=== PATIENT | female | born 1970 | race Caucasian/White ===

== ENCOUNTER 2016-11-24 19:28 | Emergency (ER) | payer OTHER ==
[~2016-11-24] VITALS: Ht 160 cm; Wt 78.2 kg
[~2016-11-24 19:28] MED LIST: CIPR500T87 PO; DICY20TA29 PO; HYDR-3240 PO; IBUP800T PO; METR500T PO
[2016-11-24] MEDS ORDERED: IBUPROFEN 200 MG TABLET PO ONE (20:30)
[2016-11-24] MEDS ORDERED: IBUPROFEN 200 MG TABLET ONE (21:01)
[2016-11-24 22:40] VITALS: BP 116/65
== END 2016-11-24 22:43 | disposition home or self-care (01) ==
LOC: ED 22:30
DX: G44.219 Episodic tension-type headache, not intractable (principal); H92.01 Otalgia, right ear; Z87.891 Personal history of nicotine dependence
CPT/HCPCS: 70450; 81003

== ENCOUNTER 2017-04-28 11:43 | Emergency (ER) | payer BC, OTHER ==
[~2017-04-28] VITALS: Ht 160 cm; Wt 78.8 kg
[~2017-04-28 11:43] MED LIST changes: +IBUP-1223 PO; -IBUP800T PO
[2017-04-28 11:44] VITALS: BP 130/84
[2017-04-28] MEDS ORDERED: KETOROLAC 30 MG/1 ML IM ONE (12:00)
[2017-04-28] MEDS ORDERED: KETOROLAC 30 MG/1 ML ONE (12:01)
== END 2017-04-28 12:39 | disposition home or self-care (01) ==
LOC: ED 12:35
DX: S80.01XA Contusion of right knee, initial encounter (principal); Z88.1 Allergy status to other antibiotic agents; X50.0XXA Overexertion from strenuous movement or load, initial encounter; Y93.89 Activity, other specified; Y92.098 Other place in other non-institutional residence as the place of occurrence of the external cause; Y99.8 Other external cause status
CPT/HCPCS: 73564; 96372; 99284; J1885

== ENCOUNTER → 2017-06-04 | Outpatient (CLI) | payer BC, OTHER | END | disposition home or self-care (01) | LOC: CFH 09:17 | PROVIDERS: ATTEND Internal Medicine | DX: F45.8 Other somatoform disorders (principal); R05 Cough | CPT/HCPCS: 74220 ==

== ENCOUNTER 2017-07-20 07:56 | Emergency (ER) | payer BC, OTHER ==
[~2017-07-20] VITALS: Ht 160 cm; Wt 79.0 kg
[2017-07-20] MEDS ORDERED: ALBUTEROL SULFATE 2.5 MG/3 ML NPPB ONE (08:30)
[2017-07-20] MEDS ORDERED: ALBUTEROL SULFATE 2.5 MG/3 ML ONE (09:17)
[2017-07-20 09:46] VITALS: BP 122/79
== END 2017-07-20 10:19 | disposition home or self-care (01) ==
LOC: ED 08:46
DX: J20.8 Acute bronchitis due to other specified organisms (principal); Z87.891 Personal history of nicotine dependence
CPT/HCPCS: 71020; 93005; 94640; 99284; J7613

== ENCOUNTER 2018-03-09 11:51 | Emergency (ER) | payer BC, OTHER ==
[~2018-03-09] VITALS: Ht 160 cm; Wt 81.0 kg
[2018-03-09] MEDS ORDERED: ONDANSETRON ODT 4 MG ONE (12:19)
[2018-03-09] MEDS ORDERED: MORPHINE SULFATE 4 MG/ML, 1ML ONE (12:19)
[2018-03-09 12:24] LABS: MICROSCOPIC AUTO
[2018-03-09 12:27] LABS: CULTURE INDICATED? YES
[2018-03-09] MEDS ORDERED: MORPHINE SULFATE 4 MG/ML, 1ML IVPush PRN (12:30)
[2018-03-09] MEDS ORDERED: SODIUM CHLORIDE FLUSH 10ML SYR IVF ONE (12:30)
[2018-03-09] MEDS ORDERED: ONDANSETRON ODT 4 MG PO ONE (12:30)
[2018-03-09 12:42] LABS: BASOPHILS # (AUTO) 0.03 x10^3/uL (0-0.1); BASOPHILS % (AUTO) 1 % (0-1); EOSINOPHILS # (AUTO) 0.05 x10^3/uL (0-0.4); EOSINOPHILS % (AUTO) 1 % (1-7); LYMPHOCYTES # (AUTO) 1.67 x10^3/uL (1-3.4); LYMPHOCYTES % (AUTO) 28 % (22-44); MD NO; MEAN CORPUSCULAR HEMOGLOBIN 32.6 pg (27.0-34.8); MEAN CORPUSCULAR HGB CONC 34.2 g/dL (32.4-35.8); MEAN CORPUSCULAR VOLUME 95.2 fL (80-100); MEAN PLATELET VOLUME 8.2 fL (7.4-10.4); MONOCYTES # (AUTO) 0.62 x10^3/uL (0.2-0.8); MONOCYTES % (AUTO) 11 % (2-9); NEUTROPHILS # (AUTO) 3.57 x10^3/uL (1.8-6.8); NEUTROPHILS % (AUTO) 60 % (42-75); PLATELET COUNT 216 x10^3/uL (130-400); RED CELL DISTRIBUTION WIDTH 12.9 % (9.6-15.2)
[2018-03-09 12:56] LABS: ALANINE AMINOTRANSFERASE 22 U/L (12-78); ALBUMIN 3.6 g/dL (3.4-5.0); CALCIUM 8.5 mg/dL (8.5-10.1)
[2018-03-09 12:58] LABS: ALKALINE PHOSPHATASE 43 U/L (45-117); BILIRUBIN,TOTAL 0.8 mg/dL (0.2-1.0); CREATININE 0.76 mg/dL (0.55-1.02); TOTAL PROTEIN 6.8 g/dL (6.4-8.2)
[2018-03-09 13:03] LABS: ANION GAP 7 mmol/L (5-15); CHLORIDE 111 mmol/L (98-107)
[2018-03-09 13:50] VITALS: BP 128/78
== END 2018-03-09 14:00 | disposition home or self-care (01) ==
LOC: ED 12:16
DX: S29.012A Strain of muscle and tendon of back wall of thorax, initial encounter (principal); K52.9 Noninfective gastroenteritis and colitis, unspecified; B19.20 Unspecified viral hepatitis C without hepatic coma; X58.XXXA Exposure to other specified factors, initial encounter; Y93.89 Activity, other specified; Y92.89 Other specified places as the place of occurrence of the external cause; Y99.8 Other external cause status
CPT/HCPCS: 36415; 74176; 80053; 81001; 83690; 85025; 87086; 96374; 99285; Q0162

== ENCOUNTER 2018-05-26 20:09 | Emergency (ER) | payer BC, OTHER ==
[~2018-05-26] VITALS: Ht 160 cm; Wt 81.9 kg
[2018-05-26 20:12] VITALS: BP 107/77
[2018-05-26] MEDS ORDERED: DIAZEPAM 5 MG TABLET PO ONE (20:30)
[2018-05-26] MEDS ORDERED: KETOROLAC 30 MG/1 ML IM ONE (20:30)
[2018-05-26] MEDS ORDERED: DIAZEPAM 5 MG TABLET ONE (20:32)
[2018-05-26] MEDS ORDERED: KETOROLAC 30 MG/1 ML ONE (20:32)
== END 2018-05-26 21:03 | disposition home or self-care (01) ==
LOC: ED 20:58
DX: S16.1XXA Strain of muscle, fascia and tendon at neck level, initial encounter (principal); M62.830 Muscle spasm of back; Z87.891 Personal history of nicotine dependence; X58.XXXA Exposure to other specified factors, initial encounter; Y93.89 Activity, other specified; Y92.89 Other specified places as the place of occurrence of the external cause; Y99.8 Other external cause status
CPT/HCPCS: 96372; 99283; J1885

== ENCOUNTER 2018-09-16 18:37 | Emergency (ER) | payer OTHER ==
[~2018-09-16] VITALS: Ht 160 cm; Wt 82.7 kg
[2018-09-16 18:53] VITALS: BP 145/75
== END 2018-09-16 19:56 | disposition home or self-care (01) ==
LOC: ED 19:10
DX: S83.92XA Sprain of unspecified site of left knee, initial encounter (principal); S93.402A Sprain of unspecified ligament of left ankle, initial encounter; Z87.891 Personal history of nicotine dependence; X50.1XXA Overexertion from prolonged static or awkward postures, initial encounter; Y93.89 Activity, other specified; Y92.009 Unspecified place in unspecified non-institutional (private) residence as the place of occurrence of the external cause; Y99.8 Other external cause status
CPT/HCPCS: 99283

== ENCOUNTER 2019-01-05 14:53 | Emergency (ER) | payer OTHER ==
[~2019-01-05] VITALS: Ht 160 cm; Wt 82.6 kg
[2019-01-05 14:56] VITALS: BP 118/92
[2019-01-05 15:30] LABS: BASOPHILS # (AUTO) 0.05 x10^3/uL (0-0.1); BASOPHILS % (AUTO) 1 % (0-1); EOSINOPHILS # (AUTO) 0.09 x10^3/uL (0-0.4); EOSINOPHILS % (AUTO) 1 % (1-7); LYMPHOCYTES # (AUTO) 2.17 x10^3/uL (1-3.4); LYMPHOCYTES % (AUTO) 31 % (22-44); MD NO; MEAN CORPUSCULAR HGB CONC 34.3 g/dL (32.4-35.8); MEAN CORPUSCULAR VOLUME 96.3 fL (80-100); MONOCYTES # (AUTO) 0.49 x10^3/uL (0.2-0.8); MONOCYTES % (AUTO) 7 % (2-9); NEUTROPHILS % (AUTO) 61 % (42-75); PLATELET COUNT 228 x10^3/uL (130-400); RED BLOOD COUNT 4.29 x10^6/uL (3.82-5.3); RED CELL DISTRIBUTION WIDTH 13.5 % (9.6-15.2)
[2019-01-05 15:41] LABS: ALANINE AMINOTRANSFERASE 20 U/L (12-78); ANION GAP 8 mmol/L (5-15); CALCIUM 8.6 mg/dL (8.5-10.1); CHLORIDE 110 mmol/L (98-107); CREATININE 0.79 mg/dL (0.55-1.02)
[2019-01-05 15:43] LABS: ALKALINE PHOSPHATASE 48 U/L (45-117); BILIRUBIN,TOTAL 0.5 mg/dL (0.2-1.0); TOTAL PROTEIN 7.1 g/dL (6.4-8.2)
[2019-01-05] MEDS ORDERED: KETOROLAC 30 MG/1 ML IM ONE (16:00)
[2019-01-05] MEDS ORDERED: KETOROLAC 30 MG/1 ML ONE (16:31)
[2019-01-05 16:38] LABS: MICROSCOPIC NOT IND
[2019-01-05 16:41] LABS: CULTURE INDICATED? NO
--- NOTE | 2019-01-05 16:43 | NUR ---
Amador RN: Pt medicated as per emar for 7/10 R flank pain.
--- NOTE | 2019-01-05 17:42 | NUR ---
task rn: pt ambulating well upon departure.
== END 2019-01-05 17:48 | disposition home or self-care (01) ==
LOC: ED 17:15
DX: S39.012A Strain of muscle, fascia and tendon of lower back, initial encounter (principal); N81.10 Cystocele, unspecified; Z87.891 Personal history of nicotine dependence; Z86.19 Personal history of other infectious and parasitic diseases; X58.XXXA Exposure to other specified factors, initial encounter; Y93.89 Activity, other specified; Y92.89 Other specified places as the place of occurrence of the external cause; Y99.8 Other external cause status
CPT/HCPCS: 36415; 76700; 80053; 81003; 83690; 85025; 96372; 99284; J1885

== ENCOUNTER 2019-07-30 08:49 | Emergency (ER) | payer OTHER ==
[~2019-07-30] VITALS: Ht 160 cm; Wt 86.0 kg
[~2019-07-30 08:49] MED LIST changes: +CBD Gummies PO; +IPRA3AMP30 NEB; +MELO15TA24 PO; +PROBIOTIC PO; +TIZA4TAB2 PO; +[UNRECOGNIZED DRUG - OTHER] PO
--- NOTE | 2019-07-30 09:13 | NUR ---
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 05/05.
[2019-07-30] MEDS ORDERED: MORPHINE SULFATE 4 MG/ML, 1ML IVPush PRN (09:30)
[2019-07-30] MEDS ORDERED: SODIUM CHLORIDE FLUSH 10ML SYR IVF ONE (09:30)
[2019-07-30] MEDS ORDERED: ONDANSETRON 2MG/ML, 2ML IVPush ONE (09:30)
--- NOTE | 2019-07-30 09:33 | NUR ---
PT AMBULATED TO BR WITH STEADY GAIT, UA COLLECTED AND SENT TO LAB
[2019-07-30] MEDS ORDERED: MORPHINE SULFATE 4 MG/ML, 1ML ONE (09:34)
[2019-07-30] MEDS ORDERED: ONDANSETRON 2MG/ML, 2ML ONE (09:34)
[2019-07-30 09:53] LABS: CULTURE INDICATED? NO; MICROSCOPIC NOT IND
[2019-07-30 09:58] LABS: BASOPHILS # (AUTO) 0.03 x10^3/uL (0-0.1); BASOPHILS % (AUTO) 0 % (0-1); EOSINOPHILS # (AUTO) 0.09 x10^3/uL (0-0.4); EOSINOPHILS % (AUTO) 2 % (1-7); LYMPHOCYTES # (AUTO) 1.57 x10^3/uL (1-3.4); LYMPHOCYTES % (AUTO) 26 % (22-44); MD NO; MEAN CORPUSCULAR HEMOGLOBIN 32.9 pg (27.0-34.8); MEAN CORPUSCULAR HGB CONC 33.1 g/dL (32.4-35.8); MEAN CORPUSCULAR VOLUME 99.3 fL (80-100); MEAN PLATELET VOLUME 8.5 fL (7.4-10.4); MONOCYTES # (AUTO) 0.42 x10^3/uL (0.2-0.8); MONOCYTES % (AUTO) 7 % (2-9); NEUTROPHILS # (AUTO) 3.85 x10^3/uL (1.8-6.8); NEUTROPHILS % (AUTO) 65 % (42-75); PLATELET COUNT 203 x10^3/uL (130-400); RED BLOOD COUNT 4.17 x10^6/uL (3.82-5.3); RED CELL DISTRIBUTION WIDTH 12.8 % (9.6-15.2)
[2019-07-30 10:04] LABS: ALBUMIN 3.6 g/dL (3.4-5.0); ANION GAP 7 mmol/L (5-15); CALCIUM 8.6 mg/dL (8.5-10.1); CHLORIDE 110 mmol/L (98-107); CREATININE 0.68 mg/dL (0.55-1.02)
--- NOTE | 2019-07-30 10:10 | NUR ---
PT TO CT
[2019-07-30 10:37] VITALS: BP 135/83
--- NOTE | 2019-07-30 10:58 | NUR ---
PT BACK FROM IMAGING
[2019-07-30] MEDS ORDERED: OMNIPAQUE 350 MG/ML, 100ML BOTTLE ONE (11:09)
== END 2019-07-30 11:36 | disposition home or self-care (01) ==
LOC: ED 10:18
DX: N83.01 Follicular cyst of right ovary (principal)
CPT/HCPCS: 36415; 74177; 76830; 80048; 81003; 82040; 85025; 96374; 96375; 99284; J2270; J2405; Q9967

== ENCOUNTER 2019-12-06 19:38 | Emergency (ER) | payer BC, OTHER ==
[~2019-12-06] VITALS: Ht 160 cm; Wt 86.5 kg
--- NOTE | 2019-12-06 19:56 | NUR ---
NAIMA ASSISTED W/ TRIAGE & DID EKG
--- NOTE | 2019-12-06 20:54 | NUR ---
PT RESTING IN [facility]. VSS. NAD. AWAITNG LAB RESULTS
[2019-12-06 21:26] LABS: BASOPHILS # (AUTO) 0.03 x10^3/uL (0-0.1); BASOPHILS % (AUTO) 0 % (0-1); EOSINOPHILS # (AUTO) 0.06 x10^3/uL (0-0.4); EOSINOPHILS % (AUTO) 1 % (1-7); LYMPHOCYTES # (AUTO) 2.23 x10^3/uL (1-3.4); LYMPHOCYTES % (AUTO) 30 % (22-44); MD NO; MEAN CORPUSCULAR HEMOGLOBIN 32.1 pg (27.0-34.8); MEAN CORPUSCULAR HGB CONC 33.8 g/dL (32.4-35.8); MEAN CORPUSCULAR VOLUME 95.1 fL (80-100); MEAN PLATELET VOLUME 8.2 fL (7.4-10.4); MONOCYTES # (AUTO) 0.54 x10^3/uL (0.2-0.8); MONOCYTES % (AUTO) 7 % (2-9); NEUTROPHILS # (AUTO) 4.55 x10^3/uL (1.8-6.8); NEUTROPHILS % (AUTO) 62 % (42-75); PLATELET COUNT 212 x10^3/uL (130-400); RED BLOOD COUNT 4.32 x10^6/uL (3.82-5.3); RED CELL DISTRIBUTION WIDTH 12.7 % (9.6-15.2)
[2019-12-06 21:36] LABS: ALANINE AMINOTRANSFERASE 13 U/L (12-78); ALBUMIN 3.5 g/dL (3.4-5.0); ANION GAP 5 mmol/L (5-15); CALCIUM 8.9 mg/dL (8.5-10.1); CHLORIDE 109 mmol/L (98-107); CREATININE 0.91 mg/dL (0.55-1.02)
[2019-12-06 21:41] LABS: ALKALINE PHOSPHATASE 52 U/L (45-117); BILIRUBIN,TOTAL 0.6 mg/dL (0.2-1.0); TOTAL PROTEIN 6.7 g/dL (6.4-8.2); TROPONIN I < 0.015 ng/mL (0.000-0.045)
[2019-12-06 21:45] VITALS: BP 146/76
--- NOTE | 2019-12-06 21:45 | NUR ---
PT RESTING IN [facility]. VSS. NAD. UP FOR RECHECK
== END 2019-12-06 22:08 | disposition home or self-care (01) ==
LOC: ED 20:08
DX: J44.1 Chronic obstructive pulmonary disease with (acute) exacerbation (principal); R07.89 Other chest pain; R94.31 Abnormal electrocardiogram [ECG] [EKG]; Z90.49 Acquired absence of other specified parts of digestive tract; Z90.710 Acquired absence of both cervix and uterus; Z87.891 Personal history of nicotine dependence
CPT/HCPCS: 36415; 71045; 80053; 83880; 84484; 85025; 93005; 99285

== ENCOUNTER 2020-01-21 12:51 | Emergency (ER) | payer BC, OTHER ==
[~2020-01-21] VITALS: Ht 160 cm; Wt 86.0 kg
--- NOTE | 2020-01-21 13:07 | NUR ---
THIS IS A 49 YO F W/ C/O BILAT LWR ABD PAIN 9/10 N/V SINCE 0400 THIS MORNING. PT REPORTS VOMITING W/ MEALS. DENIES HEMATEMESIS/D/C. HX:DIVERTICULITIS. RESP EVEN AND UNLABORED, NADN. PT RESTING ON [facility] W/ CALL LIGHT IN REACH. AT BEDSIDE FOR ED EVAL.
[2020-01-21] MEDS ORDERED: SODIUM CHLORIDE 0.9% 1,000 ML IV ONE (13:10)
[2020-01-21] MEDS ORDERED: ONDANSETRON 2MG/ML, 2ML ONE (13:24)
[2020-01-21] MEDS ORDERED: MORPHINE SULFATE 4 MG/ML, 1ML ONE (13:24)
[2020-01-21] MEDS ORDERED: MORPHINE SULFATE 4 MG/ML, 1ML IVPush PRN (13:30)
[2020-01-21] MEDS ORDERED: ONDANSETRON 2MG/ML, 2ML IVPush ONE (13:30)
[2020-01-21] MEDS ORDERED: SODIUM CHLORIDE FLUSH 10ML SYR IVF ONE (13:30)
--- NOTE | 2020-01-21 13:33 | NUR ---
PIV STARTED, LABS DRAWN. PT MEDICATED PER EMAR. PT RESTING ON GURNEY W/ CALL LIGHT IN REACH. VSS, RAVI.
[2020-01-21 13:34] LABS: MICROSCOPIC NOT IND
[2020-01-21] MEDS ORDERED: BREO ELLIPTA INH (13:35)
[2020-01-21 14:11] LABS: BASOPHILS # (AUTO) 0.04 x10^3/uL (0-0.1); BASOPHILS % (AUTO) 1 % (0-1); EOSINOPHILS # (AUTO) 0.07 x10^3/uL (0-0.4); EOSINOPHILS % (AUTO) 1 % (1-7); LYMPHOCYTES # (AUTO) 2.17 x10^3/uL (1-3.4); LYMPHOCYTES % (AUTO) 33 % (22-44); MD NO; MEAN CORPUSCULAR HEMOGLOBIN 32.4 pg (27.0-34.8); MEAN CORPUSCULAR VOLUME 98.4 fL (80-100); MEAN PLATELET VOLUME 8.4 fL (7.4-10.4); MONOCYTES # (AUTO) 0.52 x10^3/uL (0.2-0.8); MONOCYTES % (AUTO) 8 % (2-9); NEUTROPHILS # (AUTO) 3.76 x10^3/uL (1.8-6.8); NEUTROPHILS % (AUTO) 57 % (42-75); PLATELET COUNT 237 x10^3/uL (130-400); RED BLOOD COUNT 4.39 x10^6/uL (3.82-5.3); RED CELL DISTRIBUTION WIDTH 13.9 % (9.6-15.2)
[2020-01-21 14:13] LABS: ALBUMIN 3.6 g/dL (3.4-5.0); ANION GAP 7 mmol/L (5-15); CALCIUM 8.7 mg/dL (8.5-10.1); CHLORIDE 110 mmol/L (98-107)
[2020-01-21 14:19] LABS: ALANINE AMINOTRANSFERASE 17 U/L (12-78); BILIRUBIN,TOTAL 0.7 mg/dL (0.2-1.0); CREATININE 0.78 mg/dL (0.55-1.02); TOTAL PROTEIN 6.9 g/dL (6.4-8.2)
[2020-01-21 14:20] LABS: ALKALINE PHOSPHATASE 50 U/L (45-117)
--- NOTE | 2020-01-21 14:26 | NUR ---
TASK RN: ALL RESULTS ARE BACK AT THIS TIME. CHART UP FOR RECHECK.
--- NOTE | 2020-01-21 14:43 | NUR ---
PT RESTING ON [employer] W/ CALL LIGHT IN REACH, VSS, NADN. AWAITING RECHECK.
--- NOTE | 2020-01-21 16:03 | NUR ---
PT TO CT.
[2020-01-21] MEDS ORDERED: OMNIPAQUE 350 MG/ML, 100ML BOTTLE ONE (16:14)
--- NOTE | 2020-01-21 16:34 | NUR ---
CT RESULTED. PT IS UP FOR RECHECK AT THIS TIME.
--- NOTE | 2020-01-21 16:40 | NUR ---
AT BEDSIDE FOR RECHECK.
[2020-01-21 17:07] VITALS: BP 133/82
--- NOTE | 2020-01-21 17:51 | NUR ---
Patient given discharge instructions and they have confirmed that they understand the instructions. Patient ambulatory with steady gait.
== END 2020-01-21 17:52 | disposition home or self-care (01) ==
LOC: ED 15:29
DX: R10.31 Right lower quadrant pain (principal); R11.2 Nausea with vomiting, unspecified; Z90.49 Acquired absence of other specified parts of digestive tract; Z87.891 Personal history of nicotine dependence
CPT/HCPCS: 36415; 74177; 80053; 81003; 83690; 84703; 85025; 96361; 96374; 96375; 99285; J2270; J2405; J7030; Q9967

== ENCOUNTER 2020-07-07 08:02 | Emergency (ER) | payer BC, OTHER ==
[~2020-07-07] VITALS: Ht 160 cm; Wt 82.0 kg
[~2020-07-07 08:02] MED LIST changes: +BREO ELLIPTA INH
--- NOTE | 2020-07-07 08:02 | NUR ---
INITIAL PT CONTACT. PT PRESENTS TO ED VIA AMBULANCE C/O CHEST AND BACK PAIN DESCRIBED PRESSURE THAT WOKE HER OUT OF SLEEP. PER EMS PAIN IS PREPRODUCABLE WITH PALPATION. PT STATES "I TOOK A PUFF OF MY BREO INHALER AT HOME AND IT HELPED A LITTLE". PT PLACED ON CONTINUOUS PULSE OX AND CARDIAC MONITORING. CALL LIGHT AND PERSONAL BELONGINGS WITHIN REACH. PT DENIES ANY NEEDS AT THIS TIME.
[2020-07-07] MEDS ORDERED: KETOROLAC 60 MG/2 ML ONE (08:17)
[2020-07-07] MEDS ORDERED: KETOROLAC 30 MG/1 ML IM ONE (08:30)
[2020-07-07 08:49] LABS: ALANINE AMINOTRANSFERASE 10 U/L (12-78); ALBUMIN 3.5 g/dL (3.4-5.0); ANION GAP 6 mmol/L (5-15); CALCIUM 8.6 mg/dL (8.5-10.1); CHLORIDE 112 mmol/L (98-107)
[2020-07-07 08:53] LABS: ALKALINE PHOSPHATASE 53 U/L (45-117); BILIRUBIN,TOTAL 0.4 mg/dL (0.2-1.0); TOTAL PROTEIN 6.6 g/dL (6.4-8.2); TROPONIN I < 0.015 ng/mL (0.000-0.045)
--- NOTE | 2020-07-07 09:00 | NUR ---
PT SITTING UPRIGHT ON GURNEY, NAD, VSS. PT REPORTS "SLIGHT DECREASE IN PAIN" FOLLOWING EXERCISE PHYSIOLOGY PROFESSOR. PT DENIES ANY NEEDS AT THIS TIME. CONTINUOUS PULSE OX AND SALES COMPENSATION ANALYST IN PLACE. CALL LIGHT AND PERSONAL BELONGINGS IN REACH.
[2020-07-07] MEDS ORDERED: MORPHINE SULFATE 4 MG/ML, 1ML ONE (09:18)
[2020-07-07] MEDS ORDERED: MORPHINE SULFATE 4 MG/ML, 1ML IVPush PRN (09:30)
--- NOTE | 2020-07-07 09:30 | NUR ---
PT TO CT
[2020-07-07] MEDS ORDERED: OMNIPAQUE 350 MG/ML, 75ML BOTTLE ONE (09:43)
--- NOTE | 2020-07-07 10:55 | NUR ---
Patient given discharge instructions and they have confirmed that they understand the instructions. Patient ambulatory with steady gait.
[2020-07-07 10:56] VITALS: BP 128/77
== END 2020-07-07 10:58 | disposition home or self-care (01) ==
LOC: ED 09:47
DX: R07.89 Other chest pain (principal); R94.31 Abnormal electrocardiogram [ECG] [EKG]; R06.89 Other abnormalities of breathing; M54.9 Dorsalgia, unspecified; J44.9 Chronic obstructive pulmonary disease, unspecified; Z90.49 Acquired absence of other specified parts of digestive tract; Z90.710 Acquired absence of both cervix and uterus; Z98.51 Tubal ligation status
CPT/HCPCS: 36415; 71045; 71275; 80053; 84484; 93005; 96372; 96374; 99285; J1885; J2270; Q9967

== ENCOUNTER 2020-10-20 09:39 | Emergency (ER) | payer BC, OTHER ==
[~2020-10-20] VITALS: Ht 160 cm; Wt 83.2 kg
[~2020-10-20 09:39] MED LIST changes: +HYDR-1067 PO; -HYDR-3240 PO
--- NOTE | 2020-10-20 10:17 | NUR ---
MD AT BEDSIDE FOR ASSESSMENT AND TO DISCUSS PLAN OF CARE
--- NOTE | 2020-10-20 10:18 | NUR ---
PT COMES IN C/O RIGHT BUTTOCK WOUND. " I NOTICED A BUMP ABOUT A MONTH AGO." C/O PAIN, REDNESS, "PURPLE COLORING". MONITORS CONNECTED.
[2020-10-20 10:54] VITALS: BP 150/55
--- NOTE | 2020-10-20 10:56 | NUR ---
PT AMBULATED TO DISCHARGE W/STEADY GAIT. PT ENCOURAGED TO FOLLOWUP DISCUSSED. PT EDUCATED TO RETURN TO THE ED W/NEW OR WORSENING SYMPTOMS. RX GIVEN
== END 2020-10-20 11:03 | disposition home or self-care (01) ==
LOC: ED 10:15
DX: L03.317 Cellulitis of buttock (principal); J44.9 Chronic obstructive pulmonary disease, unspecified; Z87.891 Personal history of nicotine dependence; Z90.49 Acquired absence of other specified parts of digestive tract; Z90.710 Acquired absence of both cervix and uterus; Z98.51 Tubal ligation status
CPT/HCPCS: 99283

== ENCOUNTER 2020-11-04 17:42 | Emergency (ER) | payer BC, OTHER ==
[~2020-11-04] VITALS: Ht 160 cm; Wt 83.5 kg
--- NOTE | 2020-11-04 18:22 | NUR ---
PODIATRIC FOOT AND ANKLE SPECIALIST: PT TO ROOM FROM LOBBY
--- NOTE | 2020-11-04 18:28 | NUR ---
PATIENT WALKED BACK FROM TRIAGE WITH CHIEF C/O MID STERNAL CHEST PAIN THAT STARTED TODAY WHICH IS MADE WORSE WITH DEEP INHALATION. PATIENT REPORTS PAIN RADIATES TO RIGHT ARM, NAUSEA, SWEATING, DENIES SOB. PATIENT DENIES VOMITTING OR DIARRHEA. PATIENT STATES SHE WAS TESTED FOR COVID AND RESULTS CAME BACK NEGATIVE TODAY. ILENE RODRIGUES, CALL LIGHT WITHIN REACH.
[2020-11-04] MEDS ORDERED: ASPIRIN 81 MG TABLET CHEW PO ONE (18:30)
[2020-11-04] MEDS ORDERED: ASPIRIN 81 MG TABLET CHEW ONE (18:34)
[2020-11-04 18:47] LABS: BASOPHILS % (AUTO) 1 % (0-1); EOSINOPHILS % (AUTO) 2 % (1-7); LYMPHOCYTES % (AUTO) 43 % (22-44); MEAN CORPUSCULAR HEMOGLOBIN 32.9 pg (27.0-34.8); MEAN CORPUSCULAR HGB CONC 34.3 g/dL (32.4-35.8); MEAN PLATELET VOLUME 8.8 fL (7.4-10.4); MONOCYTES % (AUTO) 7 % (2-9); NEUTROPHILS % (AUTO) 47 % (42-75); PLATELET COUNT 248 x10^3/uL (130-400); RED BLOOD COUNT 4.58 x10^6/uL (3.82-5.3); RED CELL DISTRIBUTION WIDTH 13.1 % (9.6-15.2)
[2020-11-04 18:53] LABS: ALBUMIN 3.9 g/dL (3.4-5.0); ANION GAP 9 mmol/L (5-15)
--- NOTE | 2020-11-04 18:56 | NUR ---
REPORT RECIEVED FROM FEROZ ORTIZ. PT RESTING IN [facility], RESP EVEN/UNLABORED, ALL MONITORS IN PLACE
[2020-11-04 18:57] LABS: MD NO
[2020-11-04 18:59] LABS: ALANINE AMINOTRANSFERASE 16 U/L (12-78); ALKALINE PHOSPHATASE 52 U/L (45-117); BILIRUBIN,TOTAL 0.6 mg/dL (0.2-1.0); TOTAL PROTEIN 7.3 g/dL (6.4-8.2); TROPONIN I < 0.015 ng/mL (0.000-0.045)
[2020-11-04 19:05] LABS: CHLORIDE 108 mmol/L (98-107)
[2020-11-04] MEDS ORDERED: KETOROLAC 30 MG/1 ML IM ONE (19:30)
[2020-11-04] MEDS ORDERED: KETOROLAC 30 MG/1 ML ONE (19:38)
[2020-11-04 19:44] VITALS: BP 151/85
--- NOTE | 2020-11-04 19:48 | NUR ---
PT MEDICATED FOR PAIN, RESTING IN [facility], AWAITING MORE LABS
== END 2020-11-04 20:44 | disposition home or self-care (01) ==
LOC: ED 20:29
DX: R07.89 Other chest pain (principal); J44.9 Chronic obstructive pulmonary disease, unspecified; Z86.19 Personal history of other infectious and parasitic diseases; Z90.49 Acquired absence of other specified parts of digestive tract; Z87.891 Personal history of nicotine dependence
CPT/HCPCS: 36415; 71045; 80053; 83690; 84484; 85025; 85379; 93005; 96372; 99285; J1885

== ENCOUNTER 2021-02-07 21:33 | Emergency (ER) | payer BC, OTHER ==
[~2021-02-07] VITALS: Ht 160 cm; Wt 84.7 kg
[~2021-02-07 21:33] MED LIST changes: -HYDR-1067 PO; +HYDR-2214 PO
--- NOTE | 2021-02-07 21:54 | NUR ---
THIS IS A 50F THAT COMES IN FOR SWELLING AND PAIN IN R LOWER LEG, PT DENIES INJURY, RECENT TRAVEL, SMOKING HX. BRUISING IS NOTED TO LATERAL ASPECT OF CALF, HOWEVER PT AMBULATORY.
--- NOTE | 2021-02-07 21:55 | NUR ---
PA TO BEDSIDE FOR EVAL
[2021-02-07] MEDS ORDERED: HYDROcodone/APAP 5/325 TABLET ONE (22:17)
--- NOTE | 2021-02-07 22:19 | NUR ---
pt medicated per mar, us at bedside
[2021-02-07] MEDS ORDERED: HYDROcodone/APAP 5/325 TABLET PO ONE (22:30)
[2021-02-07] MEDS ORDERED: KETOROLAC 30 MG/1 ML IM ONE (23:30)
[2021-02-07] MEDS ORDERED: KETOROLAC 30 MG/1 ML ONE (23:31)
[2021-02-07 23:35] VITALS: BP 131/77
--- NOTE | 2021-02-07 23:36 | NUR ---
pt medicated per mar for continued discomfort
[2021-02-07 23:48] LABS: BASOPHILS % (AUTO) 1 % (0-1); EOSINOPHILS % (AUTO) 2 % (1-7); LYMPHOCYTES % (AUTO) 35 % (22-44); MEAN CORPUSCULAR HEMOGLOBIN 32.8 pg (27.0-34.8); MEAN CORPUSCULAR HGB CONC 34.4 g/dL (32.4-35.8); MEAN PLATELET VOLUME 8.1 fL (7.4-10.4); MONOCYTES % (AUTO) 9 % (2-9); NEUTROPHILS % (AUTO) 53 % (42-75); PLATELET COUNT 208 x10^3/uL (130-400); RED BLOOD COUNT 4.11 x10^6/uL (3.82-5.3); RED CELL DISTRIBUTION WIDTH 13.6 % (9.6-15.2)
[2021-02-08 00:02] LABS: ANION GAP 4 mmol/L (5-15); CALCIUM 8.7 mg/dL (8.5-10.1); CHLORIDE 109 mmol/L (98-107); CREATININE 0.58 mg/dL (0.55-1.02)
[2021-02-08 00:04] LABS: INTERNATIONAL NORMALIZED RATIO 0.97 (0.93-1.1); PROTHROMBIN TIME 10.4 Seconds (9.6-11.5)
--- NOTE | 2021-02-08 00:21 | NUR ---
Patient/Caregiver given discharge instructions and they have confirmed that they understand the instructions. Patient ambulatory with steady gait. NAD, all questions answered appropriately, denies additional needs at this time. No personal belongings left in room after discharge.
== END 2021-02-08 00:22 | disposition home or self-care (01) ==
LOC: ED 22:08
DX: M71.21 Synovial cyst of popliteal space [Baker], right knee (principal); R58 Hemorrhage, not elsewhere classified; J44.9 Chronic obstructive pulmonary disease, unspecified; Z90.49 Acquired absence of other specified parts of digestive tract; Z90.710 Acquired absence of both cervix and uterus; Z87.891 Personal history of nicotine dependence
CPT/HCPCS: 36415; 73590; 80048; 85025; 85610; 85730; 93971; 96372; 99285; J1885